=== PATIENT | female | born 1980 | race Caucasian/White ===

== ENCOUNTER 2016-08-04 15:37 | Emergency (ER) | payer OTHER ==
[~2016-08-04] VITALS: Ht 165.1 cm; Wt 63.5 kg
[~2016-08-04 15:37] MED LIST: ADDERALL; ATIVAN0.5 MG; CELEXA40 MG; LO-OVRAL-211 EACH; NORCO 5-325 TA1 EACH PO; SEROQUEL200 MG
[2016-08-04 15:42] VITALS: BP 123/72
[2016-08-04] MEDS ORDERED: MEDROLDOSEPACK PO (15:48)
[2016-08-04] MEDS ORDERED: PROTONIX40 M4 PO (15:49)
[2016-08-04] MEDS ORDERED: VESICARE10 M1 PO (15:51)
== END 2016-08-04 16:17 | disposition home or self-care (01) ==
LOC: ER 15:37
DX: M54.16 Radiculopathy, lumbar region (principal); M51.37 Other intervertebral disc degeneration, lumbosacral region; F41.0 Panic disorder [episodic paroxysmal anxiety]; F90.9 Attention-deficit hyperactivity disorder, unspecified type; F17.210 Nicotine dependence, cigarettes, uncomplicated